=== PATIENT | male | born 1975 | race Caucasian/White ===

== ENCOUNTER 2025-08-09 19:53 | Emergency (ER) | payer OTHER, SELFPAY ==
[2025-08-09 19:57] VITALS: BP 136/86
[2025-08-09] MEDS: ADACEL 0.5 ML IM (20:33)
--- NOTE | 2025-08-09 20:58 | ED.GENMED ---
History of Present Illness
General
Chief Complaint: Skin Surface Trauma
Source: patient
Exam Limitations: none
Time Seen by Provider: 08/09/25 20:16
Nursing documentation reviewed up to this point in time: agreed with
History of Present Illness
History of Present Illness:
49-year-old right-handed male with no reported chronic medical issues presents to the ER for evaluation of a finger laceration. Patient was cutting a piece of chicken with a sharp knife tonight and unfortunately lacerated his left index finger with
a knife. Came to the ER for assessment. He denies any other injuries or trauma. Unsure of his last tetanus shot.
Review of Systems
Review of Systems
All Other Systems: ROS reviewed and negative except as documented in HPI and ROS
Skin: Reports other (Finger laceration)
Phy Exam
Physical Exam
Physical Exam:
General: Well appearing and non-toxic
HEENT: protecting airway
Neck: appears supple
CV: No evidence of cyanosis
Resp: No accessory muscle use
Abd: Non-distended
Extremities: Patient has approximately 4 cm linear sharp laceration on the left index finger between the PIP and DIP joints�laceration is relatively superficial but steady venous oozing noted from the wound; on exploration in bloodless field no
visible tendon and patient has good strength on flexion and extension of the digit without any signs of occult tendon injury; no foreign body noted in the wound
Neuro: Alert
Psych: Normal affect
Scores
Heart Failure Risk
Heart Failure Risk Score: Not Applicable
Heart Score for Chest Pain Patients
STEMI patient?: Not applicable
Withdrawal Assessment of Alcohol
Withdrawal Assessment Completed?: Not applicable
Course
Orders/Labs/Results
Orders:
Orders
08/09/25 20:22
Tetanus/Diphth/Acelpertussis [Adacel] 0.5 ml IM .ONCE ONE
Vital Signs
Initial and Last Documented VS:
Initial Vital Signs
Temp Pulse Resp BP
36.7 C 84 18 136/86
08/09/25 19:57 08/09/25 19:57 08/09/25 19:57 08/09/25 19:57
Last Documented Vital Signs
Temp Pulse Resp BP
36.7 C 84 18 136/86
08/09/25 19:57 08/09/25 19:57 08/09/25 19:57 08/09/25 19:57
Procedures
Laceration Closure
Left Second Finger:
Status of Wound: clean
Size of Wound in cm: 4
Description of Wound Edges: sharp
Preparation: cleaned with saline
Anesthesia: 1% Lidocaine
Revision/Debridement: routine- no revision
Wound exploration: no tendon involvement
Type of Closure: single layer closure
Skin Closure Material: 5-0 prolene
Number of sutures: 6
Splinting/Sling Placement
Left Second Finger:
Procedure completed by: David Botello MD
Pre-splint extermity exam: good alignment
Type of splint: aluminium finger
Splint material: aluminum-foam
Splint checked by provider?: Yes
MDM/Problems Addressed
Differential Diagnosis Includes:
Finger laceration
MDM/Problems Addressed:
49-year-old male presents with a laceration to the left index finger while preparing dinner tonight. Will update tetanus. Laceration repaired as documented in procedure note. I did place a finger splint to help with wound healing. Stable for
discharge advised regarding follow-up plan for suture removal and return precautions.
*Pulse Oximetry
Patient hypoxic: not evaluated
*Critical Care Note
Total Time (30-74mins, 75-104mins- exclusive of procedures): Not Applicable
Data Reviewed
Source: patient
ED Attending Note
-
Portions of this chart may have been created with voice recognition software.� Occasional wrong word or��sound alike� substitutions may have occurred due to the inherent limitations of voice recognition software.
Discharge Plan
Departure
Patient Disposition: Home (Routine Discharge)
Date of Disposition: 08/09/25
Time of Disposition: 20:58
Patient with high blood pressure during this ER visit?: No
Discharge Problem:
Finger laceration
Instructions: Laceration Repair With Stitches (DC)
Activity Restrictions/Additional Instructions:
You should have your stitches removed in a week�you can either go to your primary doctor, go to urgent care, or return here to the ER for removal. If you notice any signs of infection please return to the ER immediately.
Interventions
Interventions:
*Risk Screen - Suicide Last Done: 08/09/25 19:57
*General Assessment Last Done: 08/09/25 19:57
*Neglect/Abuse Screening Last Done: 08/09/25 19:57
*ED- Fall Risk Assessment Last Done: 08/09/25 21:02
*ED COVID-19 Vaccine History Last Done: 08/09/25 19:57
*ED Influenza Vaccine History Last Done: 08/09/25 19:57
*Nursing Disposition Last Done: 08/09/25 21:02
ED-Skin Assessment Last Done: 08/09/25 20:35
Discharge Date and Time
Discharge Date/Time: 08/09/25 21:12
Print Language: JAPANESE
== END 2025-08-09 21:12 | disposition home or self-care (01) ==
LOC: EMR 19:53
PROVIDERS: EMERGENCY PHYSICIAN Emergency Medicine; FAMILY PHYSICIAN Nurse Practitioner
DX: S61.211A Laceration without foreign body of left index finger without damage to nail, initial encounter (principal); W26.0XXA Contact with knife, initial encounter; Z23 Encounter for immunization
CPT/HCPCS: 99282; 12002; 90471; 90715